=== PATIENT | female | born 2000 | race Caucasian/White ===

== ENCOUNTER 2018-01-05 13:43 | Emergency (ER) | payer BC ==
[~2018-01-05] VITALS: Ht 165.1 cm; Wt 60.0 kg
[2018-01-05 14:11] VITALS: BP 105/63; PULSE 84; RESP 17; TEMP 98.2; O2SAT 100
--- NOTE | 2018-01-05 15:29 | RADRPT ---
EXAM DATE/TIME: 01/05/2018 14:43 [facility] COMPARISON: No previous studies available for comparison. INDICATIONS : bilateral ankle injury MEDICAL HISTORY : None. SURGICAL HISTORY : None. ENCOUNTER: Initial ACUITY: 1 day PAIN SCORE: 8/10 LOCATION: Bilateral FINDINGS: 2 view exam was performed of the right ankle. The bony structures are in normal alignment. No evide nce of fracture, dislocation, or soft tissue swelling. The ankle mortise is intact. No radiopaque f oreign bodies are seen. Bony mineralization is normal. Prominent packing/gauze about the ankle. CONCLUSION: Gaseous structures of the ankle are grossly intact. Jose Juan Quinn MD on January 05, 2018 at 15:26 Board Certified Radiologist. This report was verified electronically.
--- NOTE | 2018-01-05 15:30 | RADRPT ---
EXAM DATE/TIME: 01/05/2018 14:44 [facility] COMPARISON: No previous studies available for comparison. INDICATIONS : bilateral ankle injury. MEDICAL HISTORY : None. SURGICAL HISTORY : None. ENCOUNTER: Initial ACUITY: 1 day PAIN SCORE: 8/10 LOCATION: Bilateral FINDINGS: Three view exam was performed of the left ankle. The images are performed with atypical obliquities. There is prominent gauze or packing diffusely about the ankle. The bony structures are in normal a lignment. No evidence of fracture, dislocation, or soft tissue swelling. The ankle mortise is intac t. No radiopaque foreign bodies are seen. Bony mineralization is normal. CONCLUSION: No fracture seen. Jose Juan Quinn MD on January 05, 2018 at 15:27 Board Certified Radiologist. This report was verified electronically.
--- NOTE | 2018-01-05 15:30 | RADRPT ---
EXAM DATE/TIME: 01/05/2018 14:42 [facility] COMPARISON: No previous studies available for comparison. INDICATIONS : bilateral ankle injury MEDICAL HISTORY : None. SURGICAL HISTORY : None. ENCOUNTER: Initial ACUITY: 1 day PAIN SCORE: 8/10 LOCATION: Bilateral FINDINGS: Two view examination of the right foot demonstrates no soft tissue swelling, dislocation, or fracture . The calcaneus is intact. Bony mineralization is normal. CONCLUSION: Negative exam. Jose Juan Quinn MD on January 05, 2018 at 15:28 Board Certified Radiologist. This report was verified electronically.
[2018-01-05] MEDS ORDERED: DICL75TA PO (15:45)
--- NOTE | 2018-01-05 15:59 | RADRPT ---
EXAM DATE/TIME: 01/05/2018 14:42 [facility] COMPARISON: No previous studies available for comparison. INDICATIONS : Fall with bilateral ankle injury MEDICAL HISTORY : None. SURGICAL HISTORY : None. ENCOUNTER: Initial ACUITY: 1 day PAIN SCORE: 8/10 LOCATION: Bilateral ankles FINDINGS: 2 views of the foot are provided. Exam is limited due to an ice bag over the foot. The bony structures appear grossly intact. On the AP view, there is rotation of the calcaneus I belie ve this is positional. If there is significant deformity of the foot removal the ice bag and dedicate d AP and lateral views are warranted. CONCLUSION: 1. I do not definitively see fracture. Please see above discussion. Christopher Franco MD on January 05, 2018 at 15:55 Board Certified Radiologist. This report was verified electronically.
--- NOTE | 2018-01-05 16:08 | PD ---
HPI Chief Complaint: Injury Time Seen by Provider: 15:23 Travel History International Travel<30 days: No Contact w/Intl Traveler<30days: No Traveled to known affect area: No History of Present Illness HPI 17-year-old female that presents to the ED for evaluation of injury to both legs. Patient reports that prior to coming here she was performing a cheerleading routine where she landed wrong on her ankles. She was able to finish the routine completely and was able to walk but after the routine and the yellow difficulty ambulating since she was evaluated and brought here for evaluation. She was put on braces bilaterally to the lower legs. Per patient she has had fracture of the left ankle as well as sprain of the right ankle in the past. Per patient the pain is on the ankle only. No pain in the foot. No numbness, weakness. No calf tenderness. No head injury loss of consciousness. No urinary or bowel movement issues. Pain per patient is 6 out of 10. She has not taken anything for this.. No other injuries reported. She was brought here by ambulance for evaluation of this. PFSH Past Medical History ?: Not Social History Alcohol Use: No Tobacco Use: No Substance Use: No Allergies-Medications (Allergen,Severity, Reaction): Coded Allergies: No Known Allergies (Unverified , 01/05/18) Reported Meds & Prescriptions Reported Meds & Active Scripts Active Diclofenac Sodium DR (Diclofenac Sodium) 75 Mg Tabdr 75 Mg PO BID PRN Review of Systems Except as stated in HPI: all other systems reviewed are Neg Physical Exam Narrative GENERAL: SKIN: Warm and dry. HEAD: Atraumatic. Normocephalic. EYES: Pupils equal and round. No scleral icterus. No injection or drainage. ENT: No nasal bleeding or discharge. Mucous membranes pink and moist. Tongue is midline. No uvula deviation. NECK: Trachea midline. No JVD. CARDIOVASCULAR: Regular rate and rhythm. No murmurs, S3, S4. RESPIRATORY: No accessory muscle use. Clear to auscultation. Breath sounds equal bilaterally. GASTROINTESTINAL: Abdomen soft, non-tender, nondistended. Hepatic and splenic margins not palpable. MUSCULOSKELETAL: Extremities without clubbing, cyanosis, or edema. No obvious deformities. Full range of motion of the upper and lower extremities bilaterally. 2+ pulses bilaterally. Patient has reversible pain of the medial and lateral bilateral ankles minimal swelling noted. No obvious deformity noted to the feet bilaterally. Most of the pain appears to be in the ankles themselves. No Achilles tendon deformity. No calf tenderness. Full range of motion of the feet and ankle bilaterally. More painful on the right than the left. NEUROLOGICAL: Awake and alert. No obvious cranial nerve deficits. Motor grossly within normal limits. Five out of 5 muscle strength in the arms and legs. Normal speech. PSYCHIATRIC: Appropriate mood and affect; insight and judgment normal. Data Data Last Documented VS Vital Signs Date Time Temp Pulse Resp B/P (MAP) Pulse Ox O2 Delivery O2 Flow Rate FiO2 01/05/18 14:11 98.2 84 17 105/63 (77) 100 Orders Orders Ankle, Complete ([id number]) (01/05/18 ) Ankle, Complete ([id number]) (01/05/18 ) Foot, Limited (2vws) (01/05/18 ) Foot, Limited (2vws) (01/05/18 ) Splint Or Brace Apply/Monitor (01/05/18 15:44) Ed Discharge Order (01/05/18 16:01) [facility] Medical Decision Making Medical Screen Exam Complete: Yes Emergency Medical Condition: Yes Medical Record Reviewed: Yes Interpretation(s) Last Impressions Foot X-Ray 01/05/18 0000 Signed Impressions: Service Date/Time: January 14:42 - CONCLUSION: Negative exam. Jose Juan Quinn MD Ankle X-Ray 01/05/18 0000 Signed Impressions: Service Date/Time: January 14:44 - CONCLUSION: No fracture seen. Jose Juan Quinn MD Ankle X-Ray 01/05/18 0000 Signed Impressions: Service Date/Time: January 14:43 - CONCLUSION: Gaseous structures of the ankle are grossly intact. Jose Juan Quinn MD X-ray of the foot shows no sign of acute bony injury. radiologist recommended other views if obvious deformity noted. Differential Diagnosis Fracture versus sprain versus strain versus bruise versus contusion Narrative Course 17-year-old female that presents to the ED for evaluation of bilateral ankle injury. Patient was properly examined and was found to have signs and symptoms concerning for bony injuries. X-rays were done worsens are unremarkable. Patient has no obvious deformities to the feet themselves and although the pain is on the lateral and medial malleolus of the ankle bilaterally. Appears to be a sprain. Patient was reassured. Patient was put on braces. Given crutches. Prescription for the Copaxone for pain. Apply ice or warm compresses. Follow- up with PCP. See ED if worsening symptoms. Diagnosis Primary Impression: Ankle sprain Qualified Codes: S93.409A - Sprain of unspecified ligament of unspecified ankle, initial encounter Patient Instructions: General Instructions Additional Instructions: Follow-up with PCP or your orthopedic doctor for further evaluation if symptoms continue. Apply ice or warm compresses to the ankles to help with this number. Medication only if needed. Otherwise use Tylenol Motrin for pain. Your x- rays here were essentially unremarkable for any sign of bony injuries. Sprains can take weeks sometimes to heal. Stay off your ankles or any strenuous activity for at least a couple of days to week and his symptoms not improve follow-up with primary care doctor or orthopedic. See ED for any worsening symptoms. Med/Other Pt SpecificInfo: Prescription(s) given Scripts Diclofenac Sodium DR (Diclofenac Sodium DR) 75 Mg Tabdr 75 MG PO BID Y for PAIN SCALE 1 TO 10, #20 TAB 0 Refills Prov: Genevieve Jones MD 01/05/18 Disposition: 01 DISCHARGE HOME Condition: Stable Val[place] Jan 05, 2018 16:08
== END 2018-01-05 17:07 | disposition home or self-care (01) ==
LOC: NEDAMB 13:43
DX: S93.401A Sprain of unspecified ligament of right ankle, initial encounter (principal); S93.402A Sprain of unspecified ligament of left ankle, initial encounter; X58.XXXA Exposure to other specified factors, initial encounter; Y93.45 Activity, cheerleading
CPT/HCPCS: 73610; 73620; 99283; E0113; L1906